=== PATIENT | female | born 1980 | race Caucasian/White ===

== ENCOUNTER 2024-11-22 21:37 | Inpatient (IN) ==
[2024-11-22] MEDS: LACTATED RINGERS 1,000 ML IV ONE (22:13)
[2024-11-22] MEDS: ONDANSETRON 4 MG/2 ML VIAL IV ONE (22:14)
[2024-11-22 22:37] LABS: Basophils # (Auto) 0.04 K/mcL (0.00-0.30); Basophils % (Auto) 0.3 % (0.0-2.0); Eosinophils # (Auto) 0.01 K/mcL (0.00-0.70); Eosinophils % (Auto) 0.1 % (0.0-7.0); Hematocrit 40.0 % (34.1-44.9); Hemoglobin 13.7 g/dL (11.2-15.7); Lymphocytes # (Auto) 1.81 K/mcL (1.50-4.80); Lymphocytes % (Auto) 11.5 % (15.5-49.0); Mean Corpuscular HGB Conc 34.3 g/dL (31.0-36.0); Monocytes # (Auto) 1.08 K/mcL (0.10-0.90); Monocytes % (Auto) 6.9 % (1.0-12.0); Neutrophils % (Auto) 80.9 % (38.0-78.0); Platelet Count 390 K/mcL (140-440); RBC 4.62 M/mcL (3.59-5.38); WBC 15.7 K/mcL (4.5-11.0)
[2024-11-22 23:20] LABS: Alcohol,Blood < 0.010 gm/dL (<0.010)
[2024-11-22 23:21] LABS: ALT/SGPT 15 U/L (<40); AST/SGOT 32 U/L (<32); Albumin 4.0 gm/dL (3.2-5.2); Albumin/Globulin Ratio 1.0 (1.0-2.3); Alkaline Phosphatase 78 U/L (39-117); Anion Gap 32.0 (8.0-16.0); Bilirubin,Total 0.7 mg/dL (0.1-1.0); Blood Urea Nitrogen 11 mg/dL (6-20); Calcium 9.9 mg/dL (8.6-10.4); Carbon Dioxide 14 mmol/L (22-30); Chloride 78 mmol/L (96-108); Globulin 4.1 gm/dL (2.2-3.7); Glucose 68 mg/dL (70-105); Potassium 3.2 mmol/L (3.3-5.1); Sodium 124 mmol/L (133-145)
[2024-11-22] MEDS: DIAZEPAM 10 MG/2 ML SYRINGE IV ONE (23:50)
[2024-11-23] LABS: Bacteria,Urine Few /hpf (0); Bilirubin,Urine Negative (Negative); Color,Urine Yellow; Glucose,Urine (UA) Negative (Negative); Ketones,Urine >=160 mg/dL (Negative); Leukocyte Esterase,Urine Negative /uL (Negative); PH,Urine 5.5 (5.0-9.0); Protein,Urine Negative (Negative); Specific Gravity,Urine 1.010 (1.000-1.035); Urobilinogen,Urine Normal
[2024-11-23] MEDS: DIAZEPAM 10 MG/2 ML SYRINGE IV PRN ×2 (00:37→15:28)
[2024-11-23] MEDS: [UNRECOGNIZED DRUG - REMARK] IV SCH (00:42)
[2024-11-23] MEDS: ONDANSETRON 4 MG/2 ML VIAL IV ONE (00:47)
[2024-11-23] MEDS: POTASSIUM CHLORIDE 20 MEQ/10 ML VIAL IV ONE ×3 (00:48→19:26)
[2024-11-23] MEDS: MAGNESIUM SULFATE 8.12 MEQ/2 ML VIAL ONE (00:48)
[2024-11-23] MEDS: DEXTROSE 50% 50 ML VIAL IV ONE (00:49)
[2024-11-23] MEDS ORDERED: ACETAMINOPHEN 325 MG TABLET PO PRN (01:57)
[2024-11-23] MEDS ORDERED: ONDANSETRON 4 MG/2 ML VIAL IV PRN (01:57)
[2024-11-23] MEDS ORDERED: DIAZEPAM 10 MG/2 ML SYRINGE IV PRN (02:22)
[2024-11-23] MEDS ORDERED: DEXTROSE 50% 50 ML VIAL IV PRN (02:24)
[2024-11-23] MEDS ORDERED: DEXTROSE 31 GM ORAL.SUSP PO PRN (02:24)
[2024-11-23] MEDS: LORazepam 2 MG/ML VIAL ONE (02:39)
[2024-11-23] MEDS: LORazepam 2 MG/ML VIAL IV ONE (02:39)
[2024-11-23] MEDS ORDERED: SENNOSIDES 1 TABLET PO PRN (02:47)
[2024-11-23] MEDS ORDERED: LACTULOSE 20 GM/30 ML ORAL.SOL PO PRN (02:47)
[2024-11-23] MEDS ORDERED: POLYETHYLENE GLYCOL 3350 17 GM PACKET PO PRN (02:47)
[2024-11-23 02:49] LABS: Barbiturate Screen,Urine None detected; Benzodiazepines Screen,Urine None detected; Fentanyl, Urine Screen None Detected; Opiate Screen,Urine None detected; Oxycodone, Urine Screen None detected; Phencyclidine Screen,Urine None detected
[2024-11-23] MEDS: IPRATROPIUM/ALBUTEROL 3 ML AMPUL.NEB NEB ONE (03:01)
[2024-11-23] MEDS: IPRATROPIUM/ALBUTEROL 3 ML AMPUL.NEB NEB PRN (03:02)
[2024-11-23] MEDS: GABAPENTIN 300 MG CAPSULE PO SCH (03:12)
[2024-11-23] MEDS: GABAPENTIN 300 MG CAPSULE ONE ×2 (03:12→19:26)
[2024-11-23] MEDS: GABAPENTIN 100 MG CAPSULE PO ONE (03:12)
[2024-11-23] MEDS: THIAMINE 200 MG in 0.9 % SODIUM CHLORIDE 50 ML IV ONE (03:38)
[2024-11-23 03:44] LABS: Sodium, Urine Random < 20 mmol/L
[2024-11-23] MEDS: DEXTROSE 5%-LR 1,000 ML IV SCH (04:05)
[2024-11-23] MEDS: DEXMEDETOMIDINE 400 MCG in PREMIX 1 BAG IV SCH (04:05)
[2024-11-23 04:29] LABS: ALT/SGPT 12 U/L (<40); AST/SGOT 24 U/L (<32); Albumin 3.6 gm/dL (3.2-5.2); Albumin/Globulin Ratio 1.1 (1.0-2.3); Alkaline Phosphatase 70 U/L (39-117); Anion Gap 35.0 (8.0-16.0); Bilirubin,Direct 0.3 mg/dL (<0.3); Bilirubin,Total 0.5 mg/dL (0.1-1.0); Blood Urea Nitrogen 10 mg/dL (6-20); Calcium 9.1 mg/dL (8.6-10.4); Carbon Dioxide 12 mmol/L (22-30); Chloride 82 mmol/L (96-108); Globulin 3.4 gm/dL (2.2-3.7); Glucose 72 mg/dL (70-105); Phosphorous 4.0 mg/dL (2.5-4.5); Potassium 2.9 mmol/L (3.3-5.1); Sodium 129 mmol/L (133-145); Triglycerides 112 mg/dL (<150); Uric Acid 10.0 mg/dL (2.5-8.0)
[2024-11-23] MEDS ORDERED: DEXTROSE 5%-LR 1,000 ML IV SCH (04:45)
[2024-11-23] MEDS: POTASSIUM CHLORIDE 40 MEQ in DEXTROSE 5% IN WATER 500 ML IV ONE ×2 (04:46→19:22)
[2024-11-23 04:48] LABS: Beta Hydroxybutyrate 10.7 mmol/L (<0.27)
[2024-11-23] MEDS: 0.9 % SODIUM CHLORIDE 10 ML SYRINGE IV SCH (04:48)
[2024-11-23] MEDS ORDERED: 0.9 % SODIUM CHLORIDE 10 ML SYRINGE IV SCH ×2 (06:00)
[2024-11-23 06:42] LABS: Basophils # (Auto) 0.03 K/mcL (0.00-0.30); Basophils % (Auto) 0.2 % (0.0-2.0); Eosinophils # (Auto) 0 K/mcL (0.00-0.70); Eosinophils % (Auto) 0 % (0.0-7.0); Hematocrit 37.0 % (34.1-44.9); Hemoglobin 12.3 g/dL (11.2-15.7); Lymphocytes # (Auto) 1.07 K/mcL (1.50-4.80); Lymphocytes % (Auto) 8.8 % (15.5-49.0); Mean Corpuscular HGB Conc 33.2 g/dL (31.0-36.0); Monocytes # (Auto) 0.55 K/mcL (0.10-0.90); Monocytes % (Auto) 4.5 % (1.0-12.0); Neutrophils % (Auto) 86.3 % (38.0-78.0); Platelet Count 341 K/mcL (140-440); RBC 4.18 M/mcL (3.59-5.38); WBC 12.2 K/mcL (4.5-11.0)
[2024-11-23] MEDS: INSULIN LISPRO 1 UNIT/0.01 ML UNIT SQ SCH (07:01)
[2024-11-23 07:34] LABS: INR 1.2 (0.9-1.1); Prothrombin Time 16.3 sec (11.9-14.5)
[2024-11-23 07:52] LABS: ALT/SGPT 12 U/L (<40); AST/SGOT 23 U/L (<32); Albumin 3.6 gm/dL (3.2-5.2); Albumin/Globulin Ratio 1.1 (1.0-2.3); Alkaline Phosphatase 69 U/L (39-117); Anion Gap 28.0 (8.0-16.0); Bilirubin,Direct 0.3 mg/dL (<0.3); Bilirubin,Total 0.5 mg/dL (0.1-1.0); Blood Urea Nitrogen 10 mg/dL (6-20); Calcium 8.8 mg/dL (8.6-10.4); Carbon Dioxide 15 mmol/L (22-30); Chloride 83 mmol/L (96-108); Globulin 3.4 gm/dL (2.2-3.7); Glucose 109 mg/dL (70-105); Phosphorous 4.2 mg/dL (2.5-4.5); Potassium 3.3 mmol/L (3.3-5.1); Sodium 126 mmol/L (133-145); Triglycerides 91 mg/dL (<150); Uric Acid 10.1 mg/dL (2.5-8.0)
[2024-11-23] MEDS: ENOXAPARIN 40 MG/0.4 ML SYRINGE SQ SCH (08:37)
[2024-11-23] MEDS: GABAPENTIN 400 MG CAPSULE PO SCH ×2 (08:37→19:26)
[2024-11-23] MEDS: DEXTROSE 5%-NS 1,000 ML IV SCH (08:37)
[2024-11-23] MEDS: LORazepam 2 MG/ML VIAL IV PRN (10:11)
[2024-11-23] MEDS: THIAMINE 200 MG in 0.9 % SODIUM CHLORIDE 50 ML IV SCH (10:11)
[2024-11-23] MEDS: ONDANSETRON 4 MG/2 ML VIAL IV PRN (10:11)
[2024-11-23 12:47] LABS: Anion Gap 18.0 (8.0-16.0); Blood Urea Nitrogen 10 mg/dL (6-20); Calcium 8.7 mg/dL (8.6-10.4); Carbon Dioxide 21 mmol/L (22-30); Chloride 87 mmol/L (96-108); Glucose 107 mg/dL (70-105); Potassium 3.4 mmol/L (3.3-5.1); Sodium 126 mmol/L (133-145)
[2024-11-23] MEDS: SODIUM CHLORIDE 1 GM TABLET PO SCH ×2 (14:31→19:25)
[2024-11-23 17:37] LABS: Anion Gap 15.0 (8.0-16.0); Blood Urea Nitrogen 10 mg/dL (6-20); Calcium 8.6 mg/dL (8.6-10.4); Carbon Dioxide 23 mmol/L (22-30); Chloride 88 mmol/L (96-108); Glucose 148 mg/dL (70-105); Potassium 2.7 mmol/L (3.3-5.1); Sodium 126 mmol/L (133-145)
[2024-11-23] MEDS: 0.9 % SODIUM CHLORIDE 1,000 ML IV SCH (17:57)
[2024-11-23] MEDS ORDERED: DICYCLOMINE 20 MG TABLET PO PRN (18:50)
[2024-11-23] MEDS: MELATONIN 3 MG TABLET PO SCH (19:25)
[2024-11-23] MEDS: POTASSIUM CHLORIDE 20 MEQ TABLET PO SCH (19:25)
[2024-11-23] MEDS: TOPIRAMATE 100 MG TABLET PO SCH (20:05)
[2024-11-23] MEDS: BACLOFEN 10 MG TABLET PO PRN (20:05)
[2024-11-23] MEDS: SUCRALFATE 1 GM TABLET PO SCH (20:05)
[2024-11-23] MEDS: DEXMEDETOMIDINE 100 ML IV ONE (20:05)
[2024-11-23] MEDS: DEXMEDETOMIDINE 400 MCG in PREMIX 1 BAG IV PRN (20:13)
[2024-11-23 20:50] LABS: Anion Gap 15.0 (8.0-16.0); Blood Urea Nitrogen 10 mg/dL (6-20); Calcium 8.6 mg/dL (8.6-10.4); Carbon Dioxide 23 mmol/L (22-30); Chloride 88 mmol/L (96-108); Glucose 123 mg/dL (70-105); Potassium 2.8 mmol/L (3.3-5.1); Sodium 126 mmol/L (133-145)
[2024-11-24 00:58] LABS: Anion Gap 11.0 (8.0-16.0); Blood Urea Nitrogen 8 mg/dL (6-20); Calcium 8.5 mg/dL (8.6-10.4); Carbon Dioxide 22 mmol/L (22-30); Chloride 93 mmol/L (96-108); Glucose 164 mg/dL (70-105); Potassium 4.1 mmol/L (3.3-5.1); Sodium 126 mmol/L (133-145)
[2024-11-24 06:13] LABS: Basophils # (Auto) 0.02 K/mcL (0.00-0.30); Basophils % (Auto) 0.3 % (0.0-2.0); Eosinophils # (Auto) 0.01 K/mcL (0.00-0.70); Eosinophils % (Auto) 0.1 % (0.0-7.0); Hematocrit 33.6 % (34.1-44.9); Hemoglobin 11.1 g/dL (11.2-15.7); Lymphocytes # (Auto) 1.31 K/mcL (1.50-4.80); Lymphocytes % (Auto) 18.4 % (15.5-49.0); Mean Corpuscular HGB Conc 33.0 g/dL (31.0-36.0); Monocytes # (Auto) 0.68 K/mcL (0.10-0.90); Monocytes % (Auto) 9.6 % (1.0-12.0); Neutrophils % (Auto) 71.3 % (38.0-78.0); Platelet Count 299 K/mcL (140-440); RBC 3.76 M/mcL (3.59-5.38); WBC 7.1 K/mcL (4.5-11.0)
[2024-11-24 06:25] LABS: INR 1.0 (0.9-1.1); Prothrombin Time 14.1 sec (11.9-14.5)
[2024-11-24 07:03] LABS: ALT/SGPT 10 U/L (<40); AST/SGOT 18 U/L (<32); Albumin 3.1 gm/dL (3.2-5.2); Albumin/Globulin Ratio 1.1 (1.0-2.3); Alkaline Phosphatase 58 U/L (39-117); Anion Gap 10.0 (8.0-16.0); Bilirubin,Direct 0.2 mg/dL (<0.3); Bilirubin,Total 0.4 mg/dL (0.1-1.0); Blood Urea Nitrogen 7 mg/dL (6-20); Calcium 8.4 mg/dL (8.6-10.4); Carbon Dioxide 23 mmol/L (22-30); Chloride 98 mmol/L (96-108); Globulin 2.9 gm/dL (2.2-3.7); Glucose 161 mg/dL (70-105); Phosphorous 1.7 mg/dL (2.5-4.5); Potassium 4.0 mmol/L (3.3-5.1); Sodium 131 mmol/L (133-145); Triglycerides 95 mg/dL (<150); Uric Acid 6.0 mg/dL (2.5-8.0)
[2024-11-24] MEDS: DEXMEDETOMIDINE 100 ML IV ONE ×3 (07:55→21:44)
[2024-11-24] MEDS: LISDEXAMFETAMINE 60 MG PO SCH (08:56)
[2024-11-24] MEDS: ATENOLOL 50 MG TABLET PO SCH (09:41)
[2024-11-24] MEDS: POTASSIUM PHOSPHATE 40 MEQ in DEXTROSE 5% IN WATER 500 ML IV ONE (11:50)
[2024-11-25 06:07] LABS: Basophils # (Auto) 0.03 K/mcL (0.00-0.30); Basophils % (Auto) 0.4 % (0.0-2.0); Eosinophils # (Auto) 0.09 K/mcL (0.00-0.70); Eosinophils % (Auto) 1.3 % (0.0-7.0); Hematocrit 36.6 % (34.1-44.9); Hemoglobin 11.5 g/dL (11.2-15.7); Lymphocytes # (Auto) 1.76 K/mcL (1.50-4.80); Lymphocytes % (Auto) 25.8 % (15.5-49.0); Mean Corpuscular HGB Conc 31.4 g/dL (31.0-36.0); Monocytes # (Auto) 0.56 K/mcL (0.10-0.90); Monocytes % (Auto) 8.2 % (1.0-12.0); Neutrophils % (Auto) 64.0 % (38.0-78.0); Platelet Count 329 K/mcL (140-440); RBC 3.88 M/mcL (3.59-5.38); WBC 6.8 K/mcL (4.5-11.0)
[2024-11-25 06:26] LABS: ALT/SGPT 10 U/L (<40); AST/SGOT 15 U/L (<32); Albumin 2.9 gm/dL (3.2-5.2); Albumin/Globulin Ratio 1.0 (1.0-2.3); Alkaline Phosphatase 62 U/L (39-117); Anion Gap 10.0 (8.0-16.0); Bilirubin,Direct < 0.2 mg/dL (0-0.3); Bilirubin,Total < 0.2 mg/dL (0.1-1.0); Blood Urea Nitrogen 9 mg/dL (6-20); Calcium 8.5 mg/dL (8.6-10.4); Carbon Dioxide 23 mmol/L (22-30); Chloride 109 mmol/L (96-108); Globulin 3.0 gm/dL (2.2-3.7); Glucose 134 mg/dL (70-105); Phosphorous 2.3 mg/dL (2.5-4.5); Potassium 4.0 mmol/L (3.3-5.1); Sodium 142 mmol/L (133-145); Triglycerides 150 mg/dL (<150); Uric Acid 4.8 mg/dL (2.5-8.0)
[2024-11-25 06:38] LABS: INR 1.0 (0.9-1.1); Prothrombin Time 13.9 sec (11.9-14.5)
[2024-11-25] MEDS: DEXMEDETOMIDINE 100 ML IV ONE (09:56)
[2024-11-25] MEDS: NEUTRA PHOS 1 PACKET PO SCH (10:13)
[2024-11-25] MEDS: ACETAMINOPHEN 325 MG TABLET PO PRN (18:32)
[2024-11-26 04:45] LABS: Basophils # (Auto) 0.03 K/mcL (0.00-0.30); Basophils % (Auto) 0.5 % (0.0-2.0); Eosinophils # (Auto) 0.10 K/mcL (0.00-0.70); Eosinophils % (Auto) 1.5 % (0.0-7.0); Hematocrit 35.5 % (34.1-44.9); Hemoglobin 11.3 g/dL (11.2-15.7); Lymphocytes # (Auto) 2.27 K/mcL (1.50-4.80); Lymphocytes % (Auto) 34.1 % (15.5-49.0); Mean Corpuscular HGB Conc 31.8 g/dL (31.0-36.0); Monocytes # (Auto) 0.57 K/mcL (0.10-0.90); Monocytes % (Auto) 8.6 % (1.0-12.0); Neutrophils % (Auto) 55.0 % (38.0-78.0); Platelet Count 358 K/mcL (140-440); RBC 3.79 M/mcL (3.59-5.38); WBC 6.7 K/mcL (4.5-11.0)
[2024-11-26 04:56] LABS: ALT/SGPT 8 U/L (<40); AST/SGOT 13 U/L (<32); Albumin 2.9 gm/dL (3.2-5.2); Albumin/Globulin Ratio 1.0 (1.0-2.3); Alkaline Phosphatase 58 U/L (39-117); Anion Gap 10.0 (8.0-16.0); Bilirubin,Direct < 0.2 mg/dL (0-0.3); Bilirubin,Total 0.2 mg/dL (0.1-1.0); Blood Urea Nitrogen 14 mg/dL (6-20); Calcium 8.5 mg/dL (8.6-10.4); Carbon Dioxide 22 mmol/L (22-30); Chloride 104 mmol/L (96-108); Globulin 2.9 gm/dL (2.2-3.7); Glucose 110 mg/dL (70-105); Phosphorous 2.9 mg/dL (2.5-4.5); Potassium 3.8 mmol/L (3.3-5.1); Sodium 136 mmol/L (133-145); Triglycerides 145 mg/dL (<150); Uric Acid 4.3 mg/dL (2.5-8.0)
[2024-11-26 06:25] LABS: INR 1.0 (0.9-1.1); Prothrombin Time 13.5 sec (11.9-14.5)
[2024-11-26] MEDS: MAGNESIUM SULFATE 4 GM/100 ML BAG IV ONE ×2 (22:11→22:18)
[2024-11-27 07:12] LABS: INR 0.9 (0.9-1.1); Prothrombin Time 12.8 sec (11.9-14.5)
[2024-11-27 07:43] LABS: ALT/SGPT 8 U/L (<40); AST/SGOT 16 U/L (<32); Albumin 3.0 gm/dL (3.2-5.2); Albumin/Globulin Ratio 0.9 (1.0-2.3); Alkaline Phosphatase 53 U/L (39-117); Anion Gap 15.0 (8.0-16.0); Bilirubin,Direct < 0.2 mg/dL (0-0.3); Bilirubin,Total < 0.2 mg/dL (0.1-1.0); Blood Urea Nitrogen 15 mg/dL (6-20); Calcium 9.1 mg/dL (8.6-10.4); Carbon Dioxide 19 mmol/L (22-30); Chloride 106 mmol/L (96-108); Globulin 3.2 gm/dL (2.2-3.7); Glucose 102 mg/dL (70-105); Phosphorous 3.6 mg/dL (2.5-4.5); Potassium 3.5 mmol/L (3.3-5.1); Sodium 140 mmol/L (133-145); Triglycerides 189 mg/dL (<150); Uric Acid 4.7 mg/dL (2.5-8.0)
[2024-11-27 09:42] LABS: Basophils # (Auto) 0.04 K/mcL (0.00-0.30); Basophils % (Auto) 0.5 % (0.0-2.0); Eosinophils # (Auto) 0.09 K/mcL (0.00-0.70); Eosinophils % (Auto) 1.1 % (0.0-7.0); Hematocrit 38.5 % (34.1-44.9); Hemoglobin 11.9 g/dL (11.2-15.7); Lymphocytes # (Auto) 2.30 K/mcL (1.50-4.80); Lymphocytes % (Auto) 28.2 % (15.5-49.0); Mean Corpuscular HGB Conc 30.9 g/dL (31.0-36.0); Monocytes # (Auto) 0.58 K/mcL (0.10-0.90); Monocytes % (Auto) 7.1 % (1.0-12.0); Neutrophils % (Auto) 62.9 % (38.0-78.0); Platelet Count 396 K/mcL (140-440); RBC 4.08 M/mcL (3.59-5.38); WBC 8.2 K/mcL (4.5-11.0)
[2024-11-28 06:01] LABS: Basophils # (Auto) 0.03 K/mcL (0.00-0.30); Basophils % (Auto) 0.4 % (0.0-2.0); Eosinophils # (Auto) 0.16 K/mcL (0.00-0.70); Eosinophils % (Auto) 1.9 % (0.0-7.0); Hematocrit 36.1 % (34.1-44.9); Hemoglobin 11.1 g/dL (11.2-15.7); Lymphocytes # (Auto) 3.27 K/mcL (1.50-4.80); Lymphocytes % (Auto) 38.9 % (15.5-49.0); Mean Corpuscular HGB Conc 30.7 g/dL (31.0-36.0); Monocytes # (Auto) 0.76 K/mcL (0.10-0.90); Monocytes % (Auto) 9.0 % (1.0-12.0); Neutrophils % (Auto) 49.4 % (38.0-78.0); Platelet Count 376 K/mcL (140-440); RBC 3.76 M/mcL (3.59-5.38); WBC 8.4 K/mcL (4.5-11.0)
[2024-11-28 06:45] LABS: ALT/SGPT 10 U/L (<40); AST/SGOT 19 U/L (<32); Albumin 3.2 gm/dL (3.2-5.2); Albumin/Globulin Ratio 1.1 (1.0-2.3); Alkaline Phosphatase 60 U/L (39-117); Anion Gap 12.0 (8.0-16.0); Bilirubin,Direct < 0.2 mg/dL (0-0.3); Bilirubin,Total < 0.2 mg/dL (0.1-1.0); Blood Urea Nitrogen 14 mg/dL (6-20); Calcium 9.5 mg/dL (8.6-10.4); Carbon Dioxide 23 mmol/L (22-30); Chloride 105 mmol/L (96-108); Globulin 3.0 gm/dL (2.2-3.7); Glucose 104 mg/dL (70-105); Phosphorous 4.4 mg/dL (2.5-4.5); Potassium 3.5 mmol/L (3.3-5.1); Sodium 140 mmol/L (133-145); Triglycerides 237 mg/dL (<150); Uric Acid 4.8 mg/dL (2.5-8.0)
[2024-11-28 07:19] LABS: INR 0.9 (0.9-1.1); Prothrombin Time 13.0 sec (11.9-14.5)
[2024-11-28] MEDS: THIAMINE 100 MG TABLET PO SCH (10:36)
== END 2024-11-29 11:30 | DRG 897 ==
LOC: ED 21:37 → ICU 11-23 02:25
PROVIDERS: ADMIT Student in an Organized Health Care Education/Training Program; ATTEND Student in an Organized Health Care Education/Training Program

== ENCOUNTER 2025-02-19 14:44 | Inpatient (IN) ==
[2025-02-19] MEDS: LACTATED RINGERS 1,000 ML IV ONE (15:34)
[2025-02-19] MEDS: LORazepam 2 MG/ML VIAL IV ONE (15:34)
[2025-02-19 15:46] LABS: Basophils # (Auto) 0.04 K/mcL (0.00-0.30); Basophils % (Auto) 0.3 % (0.0-2.0); Eosinophils # (Auto) 0.08 K/mcL (0.00-0.70); Eosinophils % (Auto) 0.7 % (0.0-7.0); Hematocrit 36.8 % (34.1-44.9); Hemoglobin 11.9 g/dL (11.2-15.7); Lymphocytes # (Auto) 4.32 K/mcL (1.50-4.80); Lymphocytes % (Auto) 36.8 % (15.5-49.0); Mean Corpuscular HGB Conc 32.3 g/dL (31.0-36.0); Monocytes # (Auto) 0.72 K/mcL (0.10-0.90); Monocytes % (Auto) 6.1 % (1.0-12.0); Neutrophils % (Auto) 55.9 % (38.0-78.0); Platelet Count 245 K/mcL (140-440); RBC 3.80 M/mcL (3.59-5.38); WBC 11.7 K/mcL (4.5-11.0)
[2025-02-19 16:04] LABS: Alcohol,Blood 0.223 g/dL (<0.010)
[2025-02-19 16:05] LABS: Barbiturate Screen,Urine None detected; Benzodiazepines Screen,Urine None detected; Fentanyl, Urine Screen None Detected; Opiate Screen,Urine None detected; Oxycodone, Urine Screen None detected; Phencyclidine Screen,Urine None detected
[2025-02-19 16:05] LABS: ALT/SGPT 10 U/L (<40); AST/SGOT 18 U/L (<32); Albumin 3.7 gm/dL (3.2-5.2); Albumin/Globulin Ratio 1.2 (1.0-2.3); Alkaline Phosphatase 88 U/L (39-117); Anion Gap 10.0 (8.0-16.0); Bilirubin,Total < 0.2 mg/dL (0.1-1.0); Blood Urea Nitrogen 16 mg/dL (6-20); Calcium 9.0 mg/dL (8.6-10.4); Carbon Dioxide 24 mmol/L (22-30); Chloride 108 mmol/L (96-108); Globulin 3.1 gm/dL (2.2-3.7); Glucose 87 mg/dL (70-105); Potassium 3.5 mmol/L (3.3-5.1); Sodium 142 mmol/L (133-145)
[2025-02-19] MEDS: THIAMINE 100 MG in 0.9 % SODIUM CHLORIDE 50 ML IV SCH (16:39)
[2025-02-19] MEDS: THIAMINE 100 MG/ML VIAL IV ONE (16:40)
[2025-02-19 16:44] LABS: Bacteria,Urine 0 /hpf (0); Bilirubin,Urine NEGATIVE (Negative); Color,Urine LT. YELLOW; Glucose,Urine (UA) NEGATIVE (Negative); Ketones,Urine NEGATIVE (Negative); Leukocyte Esterase,Urine NEGATIVE /uL (Negative); PH,Urine 6.5 (5.0-9.0); Protein,Urine NEGATIVE (Negative); Specific Gravity,Urine <= 1.005 (1.000-1.035); Urobilinogen,Urine 0.2 mg/dL
[2025-02-19] MEDS: PROPRANOLOL 10 MG TABLET PO ONE (17:44)
[2025-02-19 17:58] LABS: Alcohol,Blood 0.203 g/dL (<0.010)
[2025-02-19] MEDS ORDERED: IPRATROPIUM/ALBUTEROL 3 ML AMPUL.NEB NEB PRN (19:10)
[2025-02-19] MEDS ORDERED: LACTULOSE 20 GM/30 ML ORAL.SOL PO PRN (19:10)
[2025-02-19] MEDS ORDERED: DIAZEPAM 10 MG/2 ML SYRINGE IV PRN (19:10)
[2025-02-19] MEDS ORDERED: ONDANSETRON 4 MG/2 ML VIAL IV PRN (19:10)
[2025-02-19] MEDS ORDERED: SENNOSIDES 1 TABLET PO PRN (19:10)
[2025-02-19] MEDS: POTASSIUM CHLORIDE 20 MEQ, MAGNESIUM SULFATE 16.24 MEQ, THIAMINE 100 MG, MVI, ADULT NO.... IV ONE (19:27)
[2025-02-19] MEDS: NICOTINE 21 MG PATCH TOPICAL SCH (19:27)
[2025-02-19] MEDS: DEXMEDETOMIDINE 400 MCG in PREMIX 1 BAG IV SCH (19:32)
[2025-02-19] MEDS ORDERED: ALBUTEROL SULFATE 60 PUFF INHALER INH PRN (20:30)
[2025-02-19] MEDS ORDERED: SUCRALFATE 1 GM TABLET PO PRN (20:30)
[2025-02-19] MEDS ORDERED: CETIRIZINE 10 MG TABLET PO PRN (20:30)
[2025-02-19] MEDS ORDERED: CLOBETASOL PROPIONATE 1 DOSE TUBE TOPICAL PRN (20:30)
[2025-02-19] MEDS ORDERED: DICLOFENAC SODIUM TOPICAL PRN (21:04)
[2025-02-19] MEDS ORDERED: DICYCLOMINE 20 MG TABLET PO PRN (21:05)
[2025-02-19] MEDS ORDERED: LIDOCAINE 5% TOPICAL PRN (21:07)
[2025-02-19] MEDS ORDERED: MELOXICAM 7.5 MG TABLET PO PRN (21:08)
[2025-02-19] MEDS: GABAPENTIN 400 MG CAPSULE PO SCH (21:55)
[2025-02-19] MEDS: BACLOFEN 10 MG TABLET PO SCH (21:56)
[2025-02-19] MEDS: MIRTAZAPINE 15 MG TABLET PO SCH (21:56)
[2025-02-19] MEDS: DOCUSATE SODIUM 100 MG CAPSULE PO SCH (21:57)
[2025-02-19] MEDS: 0.9 % SODIUM CHLORIDE 10 ML SYRINGE IV SCH (22:04)
[2025-02-20 06:26] LABS: Basophils # (Auto) 0.03 K/mcL (0.00-0.30); Basophils % (Auto) 0.3 % (0.0-2.0); Eosinophils # (Auto) 0.08 K/mcL (0.00-0.70); Eosinophils % (Auto) 0.9 % (0.0-7.0); Hematocrit 33.3 % (34.1-44.9); Hemoglobin 10.6 g/dL (11.2-15.7); Lymphocytes # (Auto) 2.67 K/mcL (1.50-4.80); Lymphocytes % (Auto) 29.2 % (15.5-49.0); Mean Corpuscular HGB Conc 31.8 g/dL (31.0-36.0); Monocytes # (Auto) 0.71 K/mcL (0.10-0.90); Monocytes % (Auto) 7.8 % (1.0-12.0); Neutrophils % (Auto) 61.6 % (38.0-78.0); Platelet Count 207 K/mcL (140-440); RBC 3.34 M/mcL (3.59-5.38); WBC 9.2 K/mcL (4.5-11.0)
[2025-02-20 06:34] LABS: ALT/SGPT 9 U/L (<40); AST/SGOT 13 U/L (<32); Albumin 3.2 gm/dL (3.2-5.2); Albumin/Globulin Ratio 1.3 (1.0-2.3); Alkaline Phosphatase 76 U/L (39-117); Anion Gap 7.0 (8.0-16.0); Bilirubin,Total < 0.2 mg/dL (0.1-1.0); Blood Urea Nitrogen 18 mg/dL (6-20); Calcium 8.3 mg/dL (8.6-10.4); Carbon Dioxide 25 mmol/L (22-30); Chloride 109 mmol/L (96-108); Globulin 2.5 gm/dL (2.2-3.7); Glucose 94 mg/dL (70-105); Phosphorous 3.4 mg/dL (2.5-4.5); Potassium 3.9 mmol/L (3.3-5.1); Sodium 141 mmol/L (133-145)
[2025-02-20] MEDS: OMEPRAZOLE 20 MG CAPSULE PO SCH (07:26)
[2025-02-20] MEDS: VITAMIN B COMPLEX 1 CAPSULE PO SCH (08:19)
[2025-02-20] MEDS: ENOXAPARIN 40 MG/0.4 ML SYRINGE SQ SCH (08:19)
[2025-02-20] MEDS: PROPRANOLOL 10 MG TABLET PO SCH (08:19)
[2025-02-20] MEDS: CYANOCOBALAMIN (VITAMIN B-12) 500 MCG TABLET PO SCH (08:19)
[2025-02-20] MEDS: TOPIRAMATE 25 MG TABLET PO SCH (08:20)
[2025-02-20] MEDS: FOLIC ACID 1 MG TABLET PO SCH (08:20)
[2025-02-20] MEDS: MULTIVIT,THER IRON,CA,FA & MIN 1 TABLET PO SCH (08:20)
[2025-02-20] MEDS: MONTELUKAST 10 MG TABLET PO SCH (08:20)
[2025-02-20] MEDS: FLUORIDE 1.1% TOPICAL SCH (09:01)
[2025-02-20] MEDS: FLUTICASONE PROPIONATE SPRAY.NAS NS SCH (09:01)
[2025-02-20] MEDS: FLU VACC TS2025-26(6MOS UP)/PF 45 MCG/0.5 ML SYRINGE IM ONE (09:16)
[2025-02-20] MEDS ORDERED: DIAZEPAM 10 MG/2 ML SYRINGE IV PRN ×2 (10:33→10:36)
[2025-02-20] MEDS ORDERED: LORazepam 2 MG/ML ORAL.SOL PO PRN (10:56)
[2025-02-20] MEDS ORDERED: LORazepam 2 MG/ML VIAL IV PRN (10:57)
[2025-02-20] MEDS: LORazepam 2 MG/ML VIAL IV PRN (11:07)
[2025-02-21 06:00] LABS: Basophils # (Auto) 0.04 K/mcL (0.00-0.30); Basophils % (Auto) 0.4 % (0.0-2.0); Eosinophils # (Auto) 0.13 K/mcL (0.00-0.70); Eosinophils % (Auto) 1.5 % (0.0-7.0); Hematocrit 37.7 % (34.1-44.9); Hemoglobin 12.0 g/dL (11.2-15.7); Lymphocytes # (Auto) 2.79 K/mcL (1.50-4.80); Lymphocytes % (Auto) 31.4 % (15.5-49.0); Mean Corpuscular HGB Conc 31.8 g/dL (31.0-36.0); Monocytes # (Auto) 0.58 K/mcL (0.10-0.90); Monocytes % (Auto) 6.5 % (1.0-12.0); Neutrophils % (Auto) 60.0 % (38.0-78.0); Platelet Count 226 K/mcL (140-440); RBC 3.82 M/mcL (3.59-5.38); WBC 8.9 K/mcL (4.5-11.0)
[2025-02-21 06:24] LABS: ALT/SGPT 9 U/L (<40); AST/SGOT 16 U/L (<32); Albumin 3.6 gm/dL (3.2-5.2); Albumin/Globulin Ratio 1.2 (1.0-2.3); Alkaline Phosphatase 88 U/L (39-117); Anion Gap 11.0 (8.0-16.0); Bilirubin,Total < 0.2 mg/dL (0.1-1.0); Blood Urea Nitrogen 17 mg/dL (6-20); Calcium 9.1 mg/dL (8.6-10.4); Carbon Dioxide 24 mmol/L (22-30); Chloride 103 mmol/L (96-108); Globulin 3.1 gm/dL (2.2-3.7); Glucose 121 mg/dL (70-105); Phosphorous 3.2 mg/dL (2.5-4.5); Potassium 3.7 mmol/L (3.3-5.1); Sodium 138 mmol/L (133-145)
[2025-02-21] MEDS: ACETAMINOPHEN 325 MG TABLET PO PRN (10:33)
[2025-02-21] MEDS ORDERED: NICOTINE POLACRILEX 2 MG GUM CHEW/PARK PRN (18:56)
== END 2025-02-22 00:38 | disposition left against medical advice (07) | DRG 894 ==
LOC: ED 14:44 → ICU 19:01
PROVIDERS: ADMIT Internal Medicine; ATTEND Internal Medicine